=== PATIENT | female | born 1955 | race Caucasian/White ===

== ENCOUNTER 2025-04-20 15:02 | Outpatient (CLI) | payer MEDICARE, OTHER, SELFPAY ==
--- NOTE | 2025-04-20 15:30 | CT_ITS ---
WS: [id number] CT PARANASAL SINUSES with IV contrast. HISTORY: deviated septum TECHNIQUE: Contiguous 2.0 mm axial images obtained through the sinuses. Images are reconstructed in sagittal and coronal planes. All CT scans at [facility] use at least one of these dose optimization techniques: automated exposure control; mA and/or kV adjustment per patient size (includes targeted exams where dose is matched to clinical indication); or iterative reconstruction. Contrast: 100 mL Omnipaque. DLP: 345.08 mGy COMPARISON: None available. Frontal sinuses: Normal. Sphenoid sinus: Normal. Ethmoid sinuses: Normal. Maxillary sinus: Normal. Ostiomeatal unit: Patent. There is a small amount of increased soft tissue near the RIGHT ostiomeatal unit but no obstruction. Visualized orbits and globes are normal. No enhancing soft tissue masses are identified. Very mild rightward deviation of the nasal septum without significant bony spur. No soft tissue masses identified. Incidental note is made of a cavum septum at vergae. Parapharyngeal fat is partially included and a ppears normal. CT/CT sinus w con [id number] IMPRESSION: 1. Normal paranasal sinus CT. No air-fluid levels. 2. Small amount of mucoperiosteal thickening near the RIGHT ostiomeatal unit b ut no obstruction.
[2025-04-20 15:34] LABS: Blood Urea Nitrogen 18 mg/dL (8-23)
[2025-04-20] MEDS: iohexol 350 mg/mL 500 mL Btl (per mL) IV (15:57)
== END 2025-04-20 15:03 | disposition home or self-care (01) ==
PROVIDERS: PCP Family Medicine; Visit Provider Family Medicine
DX: Z87.09 Personal history of other diseases of the respiratory system (principal); J34.89 Other specified disorders of nose and nasal sinuses
CPT/HCPCS: 70487; 82565; 84520